=== PATIENT | female | born 1995 | race African-American/Black ===

== ENCOUNTER 2017-06-10 19:04 | Emergency (ER) | payer OTHER ==
[~2017-06-10] VITALS: Ht 165.1 cm; Wt 88.0 kg
[~2017-06-10 19:04] MED LIST: ADVAIR HFA115 MCG/21 INH; ALBUTEROL2.5 MG/0.5 INH; APAP500 PO; AUGMENTIN 875875 MG PO; BENADRYL25 MG PO; CETIRIZINE HCL5 MG PO; DERMOPLAST SPRA56 ML; FLONASE 0.05%50 MCG NASAL; HYDROCORTISONE30 G9 RE; IBUPROFEN 800800 M1 PO; IBUPROFEN 800800 MG PO; LANOLIN56 GM; MEDROLDOSEPACK PO; PREDNISONE 20 M20 MG PO; PRENATAL; TUCKS MEDICATE1 EAC1; VENTOLIN HFA 1818 GM INH
[2017-06-10] MEDS ORDERED: ROBITUSSIN100 MG/53 PO (19:34)
[2017-06-10] MEDS ORDERED: AMOXICILLIN500 M1 PO (19:34)
[2017-06-10 20:04] VITALS: BP 141/84
== END 2017-06-10 20:11 | disposition home or self-care (01) ==
LOC: ER 19:04
DX: H66.91 Otitis media, unspecified, right ear (principal); J06.9 Acute upper respiratory infection, unspecified; J45.909 Unspecified asthma, uncomplicated; Z88.8 Allergy status to other drugs, medicaments and biological substances

== ENCOUNTER 2017-06-12 06:16 | Emergency (ER) | payer OTHER ==
[~2017-06-12] VITALS: Ht 165.1 cm; Wt 87.1 kg
[~2017-06-12 06:16] MED LIST changes: +AMOXICILLIN500 M1 PO; +ROBITUSSIN100 MG/53 PO
[2017-06-12 08:07] VITALS: BP 125/75
== END 2017-06-12 08:08 | disposition home or self-care (01) ==
LOC: ER 06:16
DX: R05 Cough (principal); J45.909 Unspecified asthma, uncomplicated; Z88.8 Allergy status to other drugs, medicaments and biological substances